=== PATIENT | male | born 1990 | race Caucasian/White ===

== ENCOUNTER 2018-06-27 11:21 | Outpatient (CLI) | payer OTHER ==
[~2018-06-27] VITALS: Ht 180.3 cm; Wt 90.7 kg
[2018-06-27] MEDS ORDERED: NF-ACI30T PO (12:48)
[2018-06-27] MEDS ORDERED: MELA1TAB16 PO (12:48)
[2018-06-27] MEDS ORDERED: VALA10004 PO (12:48)
[2018-06-28] MEDS ORDERED: MELA1TAB27 PO (12:27)
[2018-06-28] MEDS ORDERED: LORA10TA7 PO (12:27)
[2018-06-28] MEDS ORDERED: SUCR1TAB36 PO (12:30)
== END 2018-06-27 12:49 | disposition home or self-care (01) ==
LOC: PREOP 11:21
PROVIDERS: ATTEND Surgery
DX: Z01.818 Encounter for other preprocedural examination (principal)

== ENCOUNTER 2018-06-28 11:14 | Day surgery (SDC) | payer OTHER ==
[~2018-06-28] VITALS: Ht 180.3 cm; Wt 90.7 kg
[~2018-06-28 11:14] MED LIST: MELA1TAB16 PO; NF-ACI30T PO; VALA10004 PO
--- OUTSIDE RECORDS SUMMARY | 2018-06-28 11:18 | XMS REPORT ---
Author Author LUISITO DALLAS Organization [facility] Address [address] [place] [address] Care Team Providers Care Tetryl Blender Operator Name Role Phone LUISITO DALLAS Unavailable PROBLEMS Type Condition ICD9-CM Code MAP46-PC Code Onset Dates Condition Status SNOMED Code Problem Lesion of penis N48.9 Active 962143206 Problem Genital herpes simplex, unspecified site A60.00 Active 33740295 Problem Depressive disorder, not elsewhere classified 311 Active 93659986 Problem Esophageal reflux 530.81 Active 887086814 Problem Dysthymia F34.1 Active 07908027 Problem Seasonal allergic rhinitis, unspecified allergic rhinitis trigger J30.2 Active 322767749 ALLERGIES No Information ENCOUNTERS Encounter Location Date Diagnosis [place] [address] [address] Jun, Genital herpes simplex, unspecified site A60.00 [place] [address] [address] Jun, [place] [address] [address] May, History of positive test for herpes simplex virus type 1 by PCR Z86.19 [place] [address] [address] Apr, History of positive test for herpes simplex virus type 1 by PCR Z86.19 [place] [address] [address] Apr, 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 [place] [address] [address] [place] [id number] [place] [address] 3394 Apr, Lesion of penis N48.9 [facility] [address] [place] [id number] [place] [address]64 16 Apr, 2017 Lesion of penis N48.9 [facility] [address] [place] [address] 16 Apr, 2017 [facility] WALK IN [address] [address] Apr, Screening for STDs (sexually transmitted diseases) Z11.3 and Genital herpes simplex, unspecified site A60.[address] [address] Jan, Dysthymia F34.1 [facility] WALK IN [address] [address] August, Seasonal allergic rhinitis, unspecified allergic rhinitis trigger J30.2 [facility] WALK IN [address] [address] Mar, Body aches R52 and Acute upper respiratory infection, unspecified J06.9 [place] [address] [address] 26 Dec, 2015 Encounter to establish care Z76.89 and Gastroesophageal reflux disease without esophagitis K21.9 [place] [address] [address] [place] [id number] [place] [address] 50[address] 14 Jul, [address] [address] Jul, [place] [address] [address]60 May, [address] [address] May, IMMUNIZATIONS No Known Immunizations SOCIAL HISTORY Never Assessed REASON FOR VISIT medication question PLAN OF CARE VITAL SIGNS MEDICATIONS Unknown Medications RESULTS No Results PROCEDURES No Known procedures INSTRUCTIONS MEDICATIONS ADMINISTERED No Known Medications MEDICAL (GENERAL) HISTORY Type Description Date Surgical History Double abdominal hernia surgery Surgical History [place] teeth Surgical History Cyst removal from right wrist
--- OUTSIDE RECORDS SUMMARY | 2018-06-28 11:18 | XMS REPORT ---
Author Author JEWEL ANAYA Organization [facility] Address [address] [place] [address] Care Team Providers Care Tool And Production Planner Name Role Phone JEWEL ANAYA Unavailable PROBLEMS Type Condition ICD9-CM Code FIH33-DQ Code Onset Dates Condition Status SNOMED Code Problem Esophageal reflux 530.81 Active 591618074 Problem GERD (gastroesophageal reflux disease) K21.9 Active 359288888 Problem Lesion of penis N48.9 Active 571813760 Problem Seasonal allergic rhinitis, unspecified allergic rhinitis trigger J30.2 Active 494857565 Problem Depressive disorder, not elsewhere classified 311 Active 78657338 Problem Genital herpes simplex, unspecified site A60.00 Active 27636878 Problem Dysthymia F34.1 Active 58878237 ALLERGIES No Known Allergies ENCOUNTERS Encounter Location Date Diagnosis [facility] [address] [address] Feb, [facility] [address] [address] Feb, Acute gastroenteritis K52.9 and GERD (gastroesophageal reflux disease) K21.9 [facility] [address] [place] [id number] [place] [address] Dec, Dysthymia F34.1 [facility] [address] [address] 28 Jun, 2017 Genital herpes simplex, unspecified site A60.00 [facility] [address] [address]- [address] 15 Jun, 2017 [facility] [address] [address] 19 May, 2017 History of positive test for herpes simplex virus type 1 by PCR Z86.19 [place] [address] [address] [place] [id number] [place] [address]38- 9784 Apr, History of positive test for herpes simplex virus type 1 by PCR Z86.19 [place] [address] [address] [place] [id number] [place] [address] 23151- 6872 Apr, 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 [place] [address] [address] 8[address] Apr, Lesion of penis N48.9 [facility] [address] [place] [address] Apr, Lesion of penis N48.9 [facility] [address] [place] [address] Apr, [facility] W[facility] [address] [address] Apr, Screening for STDs (sexually transmitted diseases) Z11.3 and Genital herpes simplex, unspecified site A60.00 [place] [id number] [place] [address]- 9960 Jan, Dysthymia F34.1 [facility] [address] [place] [id number] [place] [address] August, Seasonal allergic rhinitis, unspecified allergic rhinitis trigger J30.2 [facility] [address] [address] Mar, Body aches R52 and Acute upper respiratory infection, unspecified J06.9 [place] [address] [place] [id number] [place] [address]98- 18[address] 26 Dec, 2015 Encounter to establish care Z76.89 and Gastroesophageal reflux disease without esophagitis K21.9 [place] [address] [place] [id number] [place] [address] 76658- 9467 14 Jul, 2014 [place] [address] [address] Jul, [facility] [address] [facility] [id number] [place] [address] May, [facility] [address] [facility] [id number] [place] [address] May, IMMUNIZATIONS No Known Immunizations SOCIAL HISTORY Never Assessed REASON FOR VISIT Stomach ache, would like work note - ANCA Stoddard PLAN OF CARE Activity Details Follow Up w/ PCP Reason:GERD VITAL SIGNS Height 71 in 2018-03-02 Weight 200.8 lbs 2018-03-02 Temperature 97.1 degrees Fahrenheit 2018-03-02 Heart Rate 80 bpm 2018-03-02 Respiratory Rate 16 2018-03-02 BMI 28.00 kg/m2 2018-03-02 Blood pressure systolic 100 mmHg 2018-03-02 Blood pressure diastolic 70 mmHg 2018-03-02 MEDICATIONS Medication Instructions Dosage Frequency Start Date End Date Duration Status Valacyclovir HCl 1 GM Orally Once a day 1 tablet 24h 90 days Active Omeprazole 20 MG Orally Once a day 2 capsules 24h Active RESULTS No Results PROCEDURES No Known procedures INSTRUCTIONS MEDICATIONS ADMINISTERED No Known Medications MEDICAL (GENERAL) HISTORY Type Description Date Surgical History Double abdominal hernia surgery Surgical History [place] teeth Surgical History Cyst removal from right wrist
--- OUTSIDE RECORDS SUMMARY | 2018-06-28 11:18 | XMS REPORT ---
Author Author RENATO SALCIDO [facility] WALK IN [facility] Address [address] [place] [address] Care Team Providers Care Bottom Filler Name Role Phone SALCIDOAIMEERENATO Unavailable PROBLEMS Type Condition ICD9-CM Code ZRB69-JD Code Onset Dates Condition Status SNOMED Code Problem Lesion of penis N48.9 Active 071921122 Problem Genital herpes simplex, unspecified site A60.00 Active 48985391 Problem Depressive disorder, not elsewhere classified 311 Active 85340503 Problem Esophageal reflux 530.81 Active 385298874 Problem Dysthymia F34.1 Active 44550113 Problem Seasonal allergic rhinitis, unspecified allergic rhinitis trigger J30.2 Active 505250596 ALLERGIES No Information ENCOUNTERS Encounter Location Date Diagnosis [place] [address] [address] Jun, Genital herpes simplex, unspecified site A60.00 [place] [address] [address] Jun, [place] [address] [address] May, History of positive test for herpes simplex virus type 1 by PCR Z86.19 [place] [address] [address] Apr, History of positive test for herpes simplex virus type 1 by PCR Z86.19 [place] [address] [address] Apr, 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 [place] [address] [address] Apr, Lesion of penis N48.9 [facility] [address] [place] [address] [address] 16 Apr, 2017 Lesion of penis N48.9 [facility] [address] [address] Apr, [facility] [place] [address] [address] Apr, Screening for STDs (sexually transmitted diseases) Z11.3 and Genital herpes simplex, unspecified site A60.00 [place] [address] [address] Jan, Dysthymia F34.1 [facility] WALK IN [address] [address] August, Seasonal allergic rhinitis, unspecified allergic rhinitis trigger J30.2 [facility] WALK IN [address] [address] Mar, Body aches R52 and Acute upper respiratory infection, unspecified J06.9 [place] [address] [address] 26 Dec, 2015 Encounter to establish care Z76.89 and Gastroesophageal reflux disease without esophagitis K21.9 [place] [address] [address] 14 Jul, 2014 [place] [address] [address] Jul, [place] [address] [address]5 May, [place] [address] [address] May, IMMUNIZATIONS No Known Immunizations SOCIAL HISTORY Never Assessed REASON FOR VISIT Lab results PLAN OF CARE VITAL SIGNS MEDICATIONS Unknown Medications RESULTS No Results PROCEDURES No Known procedures INSTRUCTIONS MEDICATIONS ADMINISTERED No Known Medications MEDICAL (GENERAL) HISTORY Type Description Date Surgical History Double abdominal hernia surgery Surgical History [place] teeth Surgical History Cyst removal from right wrist
--- OUTSIDE RECORDS SUMMARY | 2018-06-28 11:18 | XMS REPORT ---
Author Author LUISITO DALLAS Organization [facility] Address [address] [place] [address] Care Team Providers Care Portable Irrigation Operator Name Role Phone LUISITO DALLAS Unavailable PROBLEMS Type Condition ICD9-CM Code VPC86-BJ Code Onset Dates Condition Status SNOMED Code Problem Lesion of penis N48.9 Active 369322736 Problem Genital herpes simplex, unspecified site A60.00 Active 29159548 Problem Depressive disorder, not elsewhere classified 311 Active 19091948 Problem Esophageal reflux 530.81 Active 113061822 Problem Dysthymia F34.1 Active 29919786 Problem Seasonal allergic rhinitis, unspecified allergic rhinitis trigger J30.2 Active 272413628 ALLERGIES No Known Allergies ENCOUNTERS Encounter Location Date Diagnosis [place] [address] [address] Jun, Genital herpes simplex, unspecified site A60.00 [place] [address] [address] Jun, [place] [address] [address] May, History of positive test for herpes simplex virus type 1 by PCR Z86.19 [place] [address] [address] Apr, History of positive test for herpes simplex virus type 1 by PCR Z86.19 [place] [address] [address] Apr, 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 [place] [address] [address] [place] [id number] [place] [address]- 44[address] Apr, Lesion of penis N48.9 [facility] [address] [place] [id number] [place] [address] 16 Apr, 2017 Lesion of penis N48.9 [facility] IN [facility] [address] [address] 16 Apr, 2017 [facility] [address] [address] Apr, Screening for STDs (sexually transmitted diseases) Z11.3 and Genital herpes simplex, unspecified site A60.00 [place] [address] [address] Jan, Dysthymia F34.1 [facility] IN [facility]ARE [address] [place] [address] August, Seasonal allergic rhinitis, unspecified allergic rhinitis trigger J30.2 [facility] [address] [place] [address] Mar, Body aches R52 and Acute upper respiratory infection, unspecified J06.9 [place] [address] [address] 26 Dec, 2015 Encounter to establish care Z76.89 and Gastroesophageal reflux disease without esophagitis K21.9 [place] [address] [address] [place] [id number] [place] [address]- 3787 14 Jul, 2014 [place] [address] [address] Jul, [place] [address] [address] May, [place] [address] [address]689 May, IMMUNIZATIONS No Known Immunizations SOCIAL HISTORY Never Assessed REASON FOR VISIT Discuss HSV2 Suppression Therapy options- Antionette Leslie RN PLAN OF CARE Activity Details Follow Up 6 Months Reason:Herpes VITAL SIGNS Height 71 in 2017-06-30 Weight 178 lbs 2017-06-30 Temperature 98.6 degrees Fahrenheit 2017-06-30 Heart Rate 78 bpm 2017-06-30 Respiratory Rate 18 2017-06-30 BMI 24.82 kg/m2 2017-06-30 Blood pressure systolic 124 mmHg 2017-06-30 Blood pressure diastolic 74 mmHg 2017-06-30 MEDICATIONS Medication Instructions Dosage Frequency Start Date End Date Duration Status Sertraline HCl 50 mg Orally Once a day 1/2 tablet daily for 4 days then 1 tab 24h Jan, 90 days Active Valacyclovir HCl 1 GM Orally Once a day 1 tablet 24h Jun, Oct, 30 days Active Acyclovir 400 mg orally 2 times a day one tab 12h Apr, Nov, 90 days Active Omeprazole 20 MG Orally Once a day 2 capsules 24h Active RESULTS No Results PROCEDURES No Known procedures INSTRUCTIONS MEDICATIONS ADMINISTERED No Known Medications MEDICAL (GENERAL) HISTORY Type Description Date Surgical History Double abdominal hernia surgery Surgical History [place] teeth Surgical History Cyst removal from right wrist
--- OUTSIDE RECORDS SUMMARY | 2018-06-28 11:18 | XMS REPORT ---
Author Author LUISITO DALLAS Organization [facility] Address [address] [place] [address] Care Team Providers Care Ramp Attendant Name Role Phone LUISITO DALLAS Unavailable PROBLEMS Type Condition ICD9-CM Code LPQ96-KL Code Onset Dates Condition Status SNOMED Code Problem Lesion of penis N48.9 Active 655164129 Problem Genital herpes simplex, unspecified site A60.00 Active 69265067 Problem Depressive disorder, not elsewhere classified 311 Active 97370616 Problem Esophageal reflux 530.81 Active 341359261 Problem Dysthymia F34.1 Active 68034541 Problem Seasonal allergic rhinitis, unspecified allergic rhinitis trigger J30.2 Active 291927674 ALLERGIES No Information ENCOUNTERS Encounter Location Date Diagnosis [place] [address] [address] [place] [id number] [place] [address] 13 Dec, 2017 Dysthymia F34.1 [place] [address] [place] [id number] [place] [address]16- 5837 Jun, Genital herpes simplex, unspecified site A60.00 [place] [address] [place] [address] [place] [address] 80989- 7326 Jun, [place] [address] [address] [place] [address] [place] [address] 23072- 4580 May, History of positive test for herpes simplex virus type 1 by PCR Z86.19 [place] [address] [address] [place] [address] [place] [address] 82898- 6843 Apr, History of positive test for herpes simplex virus type 1 by PCR Z86.19 [place] [address] [place] [address] [place] [address] 79273- 1193 Apr, 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 [place] [address] [address] [place] [address] [place] [address]27- 6170 Apr, Lesion of penis N48.9 [facility] [address] [place] [id number] [place] [address] Apr, Lesion of penis N48.9 [facility] [address] [address] Apr, [facility] [address] [address] Apr, Screening for STDs (sexually transmitted diseases) Z11.3 and Genital herpes simplex, unspecified site A60.[address] [address]- [address] Jan, Dysthymia F34.1 [facility] [address] [place] [address]662 -4283 August, Seasonal allergic rhinitis, unspecified allergic rhinitis trigger J30.2 [facility] [address] [place] [id number] [place] [address] Mar, Body aches R52 and Acute upper respiratory infection, unspecified J06.9 [place] [address] [address] [place] [address] [place] [address] 39854- 2651 26 Dec, 2015 Encounter to establish care Z76.89 and Gastroesophageal reflux disease without esophagitis K21.9 [place] [address] [address] [place] [address] [place] [address]- [address] Jul, [place] [address] [address]- [address]655 Jul, [place] [address] [address] 8914 May, [place] [address] [address] [place] [address] [place] [address] 37446- 4364 May, IMMUNIZATIONS No Known Immunizations SOCIAL HISTORY Never Assessed REASON FOR VISIT Refill request PLAN OF CARE VITAL SIGNS MEDICATIONS Medication Instructions Dosage Frequency Start Date End Date Duration Status Sertraline HCl 50 MG Orally Once a day 1 tablet 24h Jan, 90 days Active RESULTS No Results PROCEDURES No Known procedures INSTRUCTIONS MEDICATIONS ADMINISTERED No Known Medications MEDICAL (GENERAL) HISTORY Type Description Date Surgical History Double abdominal hernia surgery Surgical History [place] teeth Surgical History Cyst removal from right wrist
--- OUTSIDE RECORDS SUMMARY | 2018-06-28 11:18 | XMS REPORT ---
Author Author LUISITO DALLAS Organization [facility] Address [address] [place] [address] Care Team Providers Care Redipper Name Role Phone LUISITO DALLAS Unavailable PROBLEMS Type Condition ICD9-CM Code QCI91-HB Code Onset Dates Condition Status SNOMED Code Problem Esophageal reflux 530.81 Active 990353816 Problem GERD (gastroesophageal reflux disease) K21.9 Active 576122191 Problem Lesion of penis N48.9 Active 995564457 Problem Seasonal allergic rhinitis, unspecified allergic rhinitis trigger J30.2 Active 720950130 Problem Depressive disorder, not elsewhere classified 311 Active 20623187 Problem Genital herpes simplex, unspecified site A60.00 Active 95277765 Problem Dysthymia F34.1 Active 64107012 ALLERGIES No Information ENCOUNTERS Encounter Location Date Diagnosis [facility] IN [facility] [address] [place] [id number] [place] [address] Feb, GERD (gastroesophageal reflux disease) K21.[address] [facility] WALK IN [facility] [address] [place] [id number] [place] [address]228 28 Feb, 2018 Acute gastroenteritis K52.9 and GERD (gastroesophageal reflux disease) K21.9 [facility] [address] [place] [id number] [place] [address] 46191- 2990 13 Dec, 2017 Dysthymia F34.1 [facility] [address] [place] [id number] [place] [address] 04981- 5998 28 Jun, 2017 Genital herpes simplex, unspecified site A60.00 [facility] [address] [place] [id number] [place] [address] 90096- 1395 15 Jun, 2017 [facility] [address] [place] [id number] [place] [address] 98229- 0866 May, History of positive test for herpes simplex virus type 1 by PCR Z86.19 [place] [address] [address] [place] [id number] [place] [address] 42276- 1449 Apr, History of positive test for herpes simplex virus type 1 by PCR Z86.19 [place] [address] [address] [place] [id number] [place] [address] 44796- 1204 Apr, 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 [place] [address] [address] 1600 Apr, Lesion of penis N48.9 [facility] [address] [place] [id number] [place] [address]487 -4653 Apr, Lesion of penis N48.9 [facility] [address] [place] [id number] [place] [address]193 Apr, [facility] [address] [place] [address]7 Apr, Screening for STDs (sexually transmitted diseases) Z11.3 and Genital herpes simplex, unspecified site A60.[address] [address]- [address]63 Jan, Dysthymia F34.1 [facility] [address] [place] [id number] [place] [address] 7[address]78 -0065 August, Seasonal allergic rhinitis, unspecified allergic rhinitis trigger J30.2 [facility] [address] [place] [id number] [place] [address] 45271 -3738 Mar, Body aches R52 and Acute upper respiratory infection, unspecified J06.9 [place] [address] [place] [id number] [place] [address] 94104- 4801 26 Dec, 2015 Encounter to establish care Z76.89 and Gastroesophageal reflux disease without esophagitis K21.9 [place] [address] [place] [id number] [place] [address] 59179- 4006 14 Jul, 2014 [place] [address] [place] [address] 50[address] Jul, [facility] [address] [facility] [id number] [address] May, [facility] [address] [facility] [id number] [address] May, IMMUNIZATIONS No Known Immunizations SOCIAL HISTORY Never Assessed REASON FOR VISIT Medication Question PLAN OF CARE VITAL SIGNS MEDICATIONS Medication Instructions Dosage Frequency Start Date End Date Duration Status Protonix 40 MG Orally Once a day 1 tablet 24h Mar, 30 day(s) Active RESULTS No Results PROCEDURES No Known procedures INSTRUCTIONS MEDICATIONS ADMINISTERED No Known Medications MEDICAL (GENERAL) HISTORY Type Description Date Surgical History Double abdominal hernia surgery Surgical History [place] teeth Surgical History Cyst removal from right wrist
--- OUTSIDE RECORDS SUMMARY | 2018-06-28 11:19 | XMS REPORT ---
Author Author RENATO SALCIDO [facility] WALK IN [facility] Address [address] [place] [address] Care Team Providers Care Holistic Nutritionist Name Role Phone SALCIDOAIMEERENATO Unavailable PROBLEMS Type Condition ICD9-CM Code AWM04-DV Code Onset Dates Condition Status SNOMED Code Problem Lesion of penis N48.9 Active 629309485 Problem Genital herpes simplex, unspecified site A60.00 Active 71059951 Problem Depressive disorder, not elsewhere classified 311 Active 49521504 Problem Esophageal reflux 530.81 Active 407739241 Problem Dysthymia F34.1 Active 08395406 Problem Seasonal allergic rhinitis, unspecified allergic rhinitis trigger J30.2 Active 951074891 ALLERGIES No Information ENCOUNTERS Encounter Location Date Diagnosis [place] [address] [address] Jun, Genital herpes simplex, unspecified site A60.00 [place] [address] [address] Jun, [place] [address] [address] May, History of positive test for herpes simplex virus type 1 by PCR Z86.19 [place] [address] [address] Apr, History of positive test for herpes simplex virus type 1 by PCR Z86.19 [place] [address] [address] Apr, 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 [place] [address] [address] Apr, Lesion of penis N48.9 [facility] IN CARE [address] [place] [address] [place] [address] 16 Apr, 2017 Lesion of penis N48.9 [facility] [address] [address] Apr, [facility] [place] [address] [address] Apr, Screening for STDs (sexually transmitted diseases) Z11.3 and Genital herpes simplex, unspecified site A60.00 [place] [address] [address] Jan, Dysthymia F34.1 [facility] WALK IN [address] [address] August, Seasonal allergic rhinitis, unspecified allergic rhinitis trigger J30.2 [facility] WALK IN [address] [address] Mar, Body aches R52 and Acute upper respiratory infection, unspecified J06.9 [place] [address] [address] 26 Dec, 2015 Encounter to establish care Z76.89 and Gastroesophageal reflux disease without esophagitis K21.9 [place] [address] [address] [place] [id number] [place] [address] 14 Jul, 2014 [place] [address] [address] Jul, [place] [address] [address] May, [place] [address] [address] May, IMMUNIZATIONS No Known Immunizations SOCIAL HISTORY Never Assessed REASON FOR VISIT PLAN OF CARE VITAL SIGNS MEDICATIONS Unknown Medications RESULTS No Results PROCEDURES No Known procedures INSTRUCTIONS MEDICATIONS ADMINISTERED No Known Medications MEDICAL (GENERAL) HISTORY Type Description Date Surgical History Double abdominal hernia surgery Surgical History [place] teeth Surgical History Cyst removal from right wrist
--- OUTSIDE RECORDS SUMMARY | 2018-06-28 11:19 | XMS REPORT ---
Author Author LUISITO DALLAS [facility] eClinicalWorks Address Unknown Phone Unavailable Care Team Providers Care Gaming Department Head Name Role Phone LUISITO DALLAS CP Unavailable Allergies, Adverse Reactions, Alerts Substance Reaction Event Type N.K.D.A. Info Not Available Non Drug Allergy Problems Problem Type Condition Code Onset Dates Condition Status Problem Depressive disorder, not elsewhere classified 311 Active Assessment Encounter to establish care Z76.89 Active Problem Esophageal reflux 530.81 Active Assessment Gastroesophageal reflux disease without esophagitis K21.9 Active Medications Medication Code System Code Instructions Start Date End Date Status Dosage Aciphex [facility] [address]-42 20 mg Orally Once a day Dec 30, 2015 1 tablet Procedures Procedure Coding System Code Date Office Visit, New Pt., Level 3 CPT-4 06514 Dec 30, 2015 Vital Signs Date/Time: Dec 30, 2015 Cardiac Monitoring Heart Rate 80 bpm Weight 188 lbs Height 71 in BMI 26.22 Index Blood Pressure Diastolic 78 mmHg Blood Pressure Systolic 120 mmHg Results No Known Results Summary Purpose eClinicalWorks Submission
--- OUTSIDE RECORDS SUMMARY | 2018-06-28 11:19 | XMS REPORT ---
Author Author KIM VO [facility] Address [address] [place] [address] Care Team Providers Care Shore Hand Dredge Or Barge Name Role Phone KIM VO Unavailable PROBLEMS Type Condition ICD9-CM Code AGH99-VJ Code Onset Dates Condition Status SNOMED Code Problem Seasonal allergic rhinitis, unspecified allergic rhinitis trigger J30.2 Active 003421962 Problem Esophageal reflux 530.81 Active 246380039 Problem Depressive disorder, not elsewhere classified 311 Active 73237165 ALLERGIES Substance Reaction Event Type Date Status N.K.D.A. Unknown Non Drug Allergy Mar, Unknown SOCIAL HISTORY No smoking Hx information available PLAN OF CARE VITAL SIGNS Height 71 in 2016-04-01 Weight 188 lbs 2016-04-01 Temperature 98.1 degrees Fahrenheit 2016-04-01 Heart Rate 86 bpm 2016-04-01 Respiratory Rate 18 2016-04-01 BMI 26.22 kg/m2 2016-04-01 Blood pressure systolic 118 mmHg 2016-04-01 Blood pressure diastolic 74 mmHg 2016-04-01 MEDICATIONS Medication Instructions Dosage Frequency Start Date End Date Duration Status Aciphex 20 mg Orally Once a day 1 tablet 24h 26 Dec, 2015 Active RESULTS Name Result Date Reference Range INFLUENZA A & B (IN HOUSE) 2016-04-01 INFLUENZA A Negative INFLUENZA B Negative Control + Lot # [id number] Exp date 04/15/17 PROCEDURES Procedure Date Ordered Related Diagnosis Body Site Office Visit, Est Pt., Level 3 Apr 01, 2016 IMMUNIZATIONS No Known Immunizations
--- OUTSIDE RECORDS SUMMARY | 2018-06-28 11:19 | XMS REPORT ---
Author Author LUISITO DALLAS Organization [facility] Address [address] [place] [address] Care Team Providers Care Stencil Inspector Name Role Phone LUISITO DALLAS Unavailable PROBLEMS Type Condition ICD9-CM Code BTC25-XE Code Onset Dates Condition Status SNOMED Code Problem Lesion of penis N48.9 Active 177020829 Problem Genital herpes simplex, unspecified site A60.00 Active 34481799 Problem Depressive disorder, not elsewhere classified 311 Active 08580767 Problem Esophageal reflux 530.81 Active 585967800 Problem Dysthymia F34.1 Active 32684626 Problem Seasonal allergic rhinitis, unspecified allergic rhinitis trigger J30.2 Active 470851733 ALLERGIES No Known Allergies ENCOUNTERS Encounter Location Date Diagnosis [place] [address] [address] Jun, Genital herpes simplex, unspecified site A60.00 [place] [address] [address] Jun, [place] [address] [address] May, History of positive test for herpes simplex virus type 1 by PCR Z86.19 [place] [address] [address] Apr, History of positive test for herpes simplex virus type 1 by PCR Z86.19 [place] [address] [address] Apr, 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 [place] [address] [address] [place] [id number] [place] [address] Apr, Lesion of penis N48.9 [facility] IN CARE [address] [place] [id number] [place] [address] 16 Apr, 2017 Lesion of penis N48.9 [facility] IN [facility] [address] [place] [address] 16 Apr, 2017 [facility] [address] [address] Apr, Screening for STDs (sexually transmitted diseases) Z11.3 and Genital herpes simplex, unspecified site A60.00 [place] [address] [address] Jan, Dysthymia F34.1 [facility] [address] [place] [address] August, Seasonal allergic rhinitis, unspecified allergic rhinitis trigger J30.2 [facility] WALK IN [address] [address] Mar, Body aches R52 and Acute upper respiratory infection, unspecified J06.9 [place] [address] [address] 26 Dec, 2015 Encounter to establish care Z76.89 and Gastroesophageal reflux disease without esophagitis K21.9 [place] [id number] [place] [address] 14 Jul, [address] [address] Jul, [place] [address] [address] May, [address] [address] May, IMMUNIZATIONS No Known Immunizations SOCIAL HISTORY Never Assessed REASON FOR VISIT HSV - [place] Juan PLAN OF CARE Activity Details Follow Up 4 Weeks Reason:acyclovir VITAL SIGNS Height 71 in 2017-05-03 Weight 181.5 lbs 2017-05-03 Temperature 98.3 degrees Fahrenheit 2017-05-03 Heart Rate 88 bpm 2017-05-03 Respiratory Rate 20 2017-05-03 BMI 25.31 kg/m2 2017-05-03 Blood pressure systolic 122 mmHg 2017-05-03 Blood pressure diastolic 82 mmHg 2017-05-03 MEDICATIONS Medication Instructions Dosage Frequency Start Date End Date Duration Status Omeprazole 10 MG Orally Once a day 2 capsules 24h Active Sertraline HCl 50 mg Orally Once a day 1/2 tablet daily for 4 days then 1 tab 24h Jan, 90 days Not-Taking Acyclovir 400 mg orally 4 times a day one tab 6h Apr, May, 14 days Active RESULTS No Results PROCEDURES Procedure Date Ordered Result Body Site VIRUS INOCULATION, TISSUE May 03, 2017 INSTRUCTIONS MEDICATIONS ADMINISTERED No Known Medications MEDICAL (GENERAL) HISTORY Type Description Date Surgical History Double abdominal hernia surgery Surgical History [place] teeth Surgical History Cyst removal from right wrist
--- OUTSIDE RECORDS SUMMARY | 2018-06-28 11:19 | XMS REPORT ---
Author Author RENATO SALCIDO [facility] WALK IN [facility] Address [address] [place] [address] Care Team Providers Care Entry Level Electrician Name Role Phone SALCIDOAIMEERENATO Unavailable PROBLEMS Type Condition ICD9-CM Code IYZ54-ZZ Code Onset Dates Condition Status SNOMED Code Problem Lesion of penis N48.9 Active 799462576 Problem Genital herpes simplex, unspecified site A60.00 Active 59593487 Problem Depressive disorder, not elsewhere classified 311 Active 52818799 Problem Esophageal reflux 530.81 Active 657120014 Problem Dysthymia F34.1 Active 95778163 Problem Seasonal allergic rhinitis, unspecified allergic rhinitis trigger J30.2 Active 301055660 ALLERGIES No Information ENCOUNTERS Encounter Location Date Diagnosis [place] [address] [address] Jun, Genital herpes simplex, unspecified site A60.00 [place] [address] [address] Jun, [place] [address] [address] May, History of positive test for herpes simplex virus type 1 by PCR Z86.19 [place] [address] [address] Apr, History of positive test for herpes simplex virus type 1 by PCR Z86.19 [place] [address] [address] Apr, 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 [place] [address] [address] Apr, Lesion of penis N48.9 [facility] W[facility] IN [facility]ARE [address] [place] [address] [place] [address] 16 Apr, 2017 Lesion of penis N48.9 [facility] IN [facility] N [address] [address] 16 Apr, 2017 [facility] WALK IN [place] [address] [address] 08 Apr, 2017 Screening for STDs (sexually transmitted diseases) Z11.3 and Genital herpes simplex, unspecified site A60.00 [place] [address] [address] 11 Jan, 2017 Dysthymia F34.1 [facility] WALK IN [address] [address] 16 Aug, 2016 Seasonal allergic rhinitis, unspecified allergic rhinitis trigger J30.2 [facility] WALK IN [address] [address] Mar, Body aches R52 and Acute upper respiratory infection, unspecified J06.9 [place] [address] [address] 26 Dec, 2015 Encounter to establish care Z76.89 and Gastroesophageal reflux disease without esophagitis K21.9 [place] [address] [address] [place] [id number] [place] [address] 14 Jul, 2014 [place] [address] [address] Jul, [place] [address] [address] [place] [id number] [place] [address] May, [place] [address] [address] May, IMMUNIZATIONS No Known Immunizations SOCIAL HISTORY Never Assessed REASON FOR VISIT Lab (walk-in) PLAN OF CARE VITAL SIGNS MEDICATIONS Unknown Medications RESULTS No Results PROCEDURES Procedure Date Ordered Result Body Site HERPES SIMPLEX TYPE 2 Apr 23, 2017 HERPES SIMPLEX TEST Apr 23, 2017 VENIPUNCT, ROUTINE* Apr 23, 2017 INSTRUCTIONS MEDICATIONS ADMINISTERED No Known Medications MEDICAL (GENERAL) HISTORY Type Description Date Surgical History Double abdominal hernia surgery Surgical History [place] teeth Surgical History Cyst removal from right wrist
--- OUTSIDE RECORDS SUMMARY | 2018-06-28 11:19 | XMS REPORT ---
Author Author LUISITO DALLAS Organization [facility] Address [address] [place] [address] Care Team Providers Care Powder Nipper Name Role Phone LUISITO DALLAS Unavailable PROBLEMS Type Condition ICD9-CM Code GTN49-AL Code Onset Dates Condition Status SNOMED Code Problem Lesion of penis N48.9 Active 189489534 Problem Genital herpes simplex, unspecified site A60.00 Active 76976656 Problem Depressive disorder, not elsewhere classified 311 Active 35685679 Problem Esophageal reflux 530.81 Active 910194067 Problem Dysthymia F34.1 Active 65473335 Problem Seasonal allergic rhinitis, unspecified allergic rhinitis trigger J30.2 Active 169786038 ALLERGIES No Information ENCOUNTERS Encounter Location Date Diagnosis [place] [address] [address] Jun, Genital herpes simplex, unspecified site A60.00 [place] [address] [address] Jun, [place] [address] [address] May, History of positive test for herpes simplex virus type 1 by PCR Z86.19 [place] [address] [address] Apr, History of positive test for herpes simplex virus type 1 by PCR Z86.19 [place] [address] [address] Apr, 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 [place] [address] [address] [place] [id number] [place] [address] Apr, Lesion of penis N48.9 [facility] IN [facility]ARE [address] [place] [id number] [place] [address] 16 Apr, 2017 Lesion of penis N48.9 [facility] IN [facility]ARE [address] [place] [address] 16 Apr, 2017 [facility] WALK IN [address] [address] Apr, Screening for STDs (sexually transmitted diseases) Z11.3 and Genital herpes simplex, unspecified site A60.[address] [address] Jan, Dysthymia F34.1 [facility] WALK IN [address] [address] August, Seasonal allergic rhinitis, unspecified allergic rhinitis trigger J30.2 [facility] WALK IN [address] [address] Mar, Body aches R52 and Acute upper respiratory infection, unspecified J06.9 [place] [address] [address] 26 Dec, 2015 Encounter to establish care Z76.89 and Gastroesophageal reflux disease without esophagitis K21.9 [place] [id number] [place] [address] 14 Jul, [address] [address] Jul, [place] [address] [address] [place] [id number] [place] [address] May, [address] [address] May, IMMUNIZATIONS No Known Immunizations SOCIAL HISTORY Never Assessed REASON FOR VISIT Medication refill request PLAN OF CARE VITAL SIGNS MEDICATIONS Medication Instructions Dosage Frequency Start Date End Date Duration Status Acyclovir 400 mg orally 2 times a day one tab 12 Apr, Nov, 90 days Active RESULTS No Results PROCEDURES No Known procedures INSTRUCTIONS MEDICATIONS ADMINISTERED No Known Medications MEDICAL (GENERAL) HISTORY Type Description Date Surgical History Double abdominal hernia surgery Surgical History [place] teeth Surgical History Cyst removal from right wrist
--- OUTSIDE RECORDS SUMMARY | 2018-06-28 11:20 | XMS REPORT | Continuity of Care Document ---
Author Author [facility] Address Unknown Phone Unavailable Allergies There is no data. Medications There is no data. Problems Date Dx Coded Attending Type Code Diagnosis Diagnosed By 05/18/2014 ALICIA BENTON APRN 311 DEPRESSIVE DISORDER NOT ELSEWHERE CLASSIFIED 05/18/2014 ALICIA BENTON APRN 530.81 GERD Procedures There is no data. Results Test Result Range CULTURE, VIRAL (HSV W/TYPING) - 04/12/17 00:00 SOURCE: PENIS NRG HSV CULTURE: TNP NRG TEST IN QUESTION- [facility] QUESTION - 04/20/17 05:22 RESOLUTION: NRG COMMENT NRG QUESTION/PROBLEM: NRG QUESTION: 04/12/2017 8:12 NRG HSV 1/2 IGG,TYPE SPECIFIC AB HERPESELECT - 04/23/17 14:45 HSV 1 IGG, TYPE SPECIFIC AB 24.60 index NRG HSV 2 IGG, TYPE SPECIFIC AB 1.02 index NRG HSV TYPE 2 - 05/03/17 14:34 HSV TYPE 2: ISOLATED NRG Encounters ACCT No. Visit Date/Time Discharge Status Pt. Type Provider Facility Loc./Unit Complaint [id number] 05/18/2014 08:08:00 05/18/2014 23:59:59 CLS Outpatient ALICIA BENTON APRN [id number] 06/15/2018 15:20:00 06/15/2018 23:59:59 CLS Outpatient LUISITO DALLAS APRN [facility] [id number] 05/03/2017 14:34:00 Document Registration [id number] 05/03/2017 14:00:00 Document Registration [id number] 04/23/2017 14:40:00 Document Registration [id number] 04/12/2017 13:10:00 Document Registration
[2018-06-28] MEDS ORDERED: LACTATED RINGERS 1,000 ML IV STA (11:33)
[2018-06-28 11:40] VITALS: BP 136/93
[2018-06-28] MEDS ORDERED: HURRICAINE EXT TUBE (BENZOCAINE) XX PRN (11:45)
[2018-06-28] MEDS ORDERED: HURRICAINE EXT TUBE (BENZOCAINE) ONE (11:46)
[2018-06-28] MEDS ORDERED: PROPOFOL INJECTION 50 ML IV ONE (12:13)
[2018-06-28] MEDS ORDERED: MIDAZOLAM 2 MG/2 ML (VERSED) VIAL ONE (12:13)
[2018-06-28] MEDS ORDERED: LORA10TA7 PO (12:27)
[2018-06-28] MEDS ORDERED: MELA1TAB27 PO (12:27)
--- NOTE | 2018-06-28 12:27 | Progress Note-Post Operative ---
Post-Operative Progess Note Surgeon (s)/Clinical Esthetician (s) Surgeon CARRIE AGUDELO DO Clinical Esthetician: NA Pre-Operative Diagnosis GERD Post-Operative Diagnosis gastritis, hiatal hernia, esophagitis Procedure & Operative Findings Date of Procedure 06/28/18 Procedure Performed/Findings EGD w/ biopsies Anesthesia Type per HYDROLOGICAL TECHNICAL OFFICER Estimated Blood Loss Estimated blood loss (mL): None Specimens/Packing Specimens Removed Antrum, GE CARRIE AGUDELO DO Jun 28, 2018 12:27
[2018-06-28] MEDS ORDERED: SUCR1TAB36 PO (12:30)
--- NOTE | 2018-06-28 12:32 | Discharge Inst-Simple/Standard ---
Discharge Inst-Standard Discharge Medications New, Converted or Re-Newed RX: Transmitted to Pharmacy Patient Instructions/Follow Up Plan of Care/Instructions/FU: 2 weeks rbennen Activity as Tolerated: Yes Discharge Diet: Regular Diet CARRIE AGUDELO DO Jun 28, 2018 12:32
[2018-06-28 12:45] VITALS: BP 106/65
[2018-06-28 13:15] VITALS: BP 113/74
[2018-06-28 13:18] VITALS: BP 113/74
--- NOTE | 2018-06-28 15:42 | OPERATIVE REPORT ---
DATE OF SERVICE: 06/28/2018 PREOPERATIVE DIAGNOSIS: Gastroesophageal reflux disease. POSTOPERATIVE DIAGNOSES: Gastritis, hiatal hernia, and esophagitis. PROCEDURE PERFORMED: Esophagogastroduodenoscopy with biopsy. SURGEON: Carrie Null DO. ANESTHESIA: Per SITE LEASING AGENT. ESTIMATED BLOOD LOSS: None. COMPLICATIONS: None. INDICATIONS: The patient is a 28-year-old male with continued gastroesophageal reflux disease despite medical management. The patient was explained risks and benefits of procedure and wished to proceed with procedure. Consent was signed in the chart. DESCRIPTION OF PROCEDURE: The patient was taken to the endoscopy suite, placed in left lateral recumbent position. Timeout was performed. Scope was inserted in mouth, down the esophagus, stomach and into the duodenum without difficulty. There were no polyps, masses or ulcerations. The scope was then slowly retracted back into the stomach where it was further insufflated. Erythematous changes consistent with gastritis were present. Biopsy of the antrum was obtained. No polyps, masses or ulcerations. Scope was retroflexed noting a small hiatal hernia, no other pathology. Scope was returned to its normal position, slowly withdrawn to the distal esophagus, which had erythematous changes. Biopsy was obtained. Scope was then slowly retracted back noting no other pathology. The patient tolerated procedure well without any complications, taken to recovery room in stable condition. RECOMMENDATIONS: The patient will be started on Carafate 1 gram four times a day. We will follow up on biopsies in approximately 2 weeks. We will see how he is doing at that time. Job ID: [id number] DocumentID: [id number] Dictated Date: 06/28/2018 12:31:41 Insurance Sales Agent Date: 06/28/2018 15:40:52 Dictated By: CARRIE NULL DO
== END 2018-06-28 13:20 | disposition home or self-care (01) ==
LOC: ENDO 11:14
PROVIDERS: ATTEND Surgery
DX: K20.0 Eosinophilic esophagitis (principal); K21.9 Gastro-esophageal reflux disease without esophagitis; K44.9 Diaphragmatic hernia without obstruction or gangrene; K29.50 Unspecified chronic gastritis without bleeding; J45.909 Unspecified asthma, uncomplicated; Z79.899 Other long term (current) drug therapy

== ENCOUNTER → 2021-01-26 | Outpatient (CLI) | payer OTHER ==
[~2021-01-26] MED LIST changes: +CATHETER FLUSH 10 ML SYR IV PRN; +HOLD METFORMIN - RECEIVED CONTRAST 20 ML VIAL IV SCH; +IOHEXOL 350 MG/ML 100 ML (OMNIPAQUE 350) VIAL IV ONE; +LORA10TA7 PO; +MELA1TAB27 PO; +NS 100 ML (IVPB) BAG IV ONE; +SUCR1TAB36 PO
[2021-01-26 16:50] LABS: BASOPHILS % (AUTO) 1 % (0-10); EOSINOPHILS # (AUTO) 0.2 10^3/uL (0.0-0.3); EOSINOPHILS % (AUTO) 4 % (0-10); HEMATOCRIT 44 % (40-54); HEMOGLOBIN 15.3 g/dL (13.3-17.7); LYMPHOCYTES # (AUTO) 1.9 10^3/uL (1.0-4.0); LYMPHOCYTES % (AUTO) 32 % (12-44); MEAN CORPUSCULAR HEMOGLOBIN 32 pg (25-34); MEAN CORPUSCULAR HGB CONC 35 g/dL (32-36); MEAN CORPUSCULAR VOLUME 91 fL (80-99); MEAN PLATELET VOLUME 9.3 fL (9.0-12.2); MONOCYTES # (AUTO) 0.6 10^3/uL (0.0-1.0); MONOCYTES % (AUTO) 11 % (0-12); NEUTROPHILS % (AUTO) 53 % (42-75); PLATELET COUNT 284 10^3/uL (130-400); WHITE BLOOD COUNT 5.8 10^3/uL (4.3-11.0)
--- NOTE | 2021-01-26 17:21 | Diagnostic Imaging Report ---
PROCEDURE: CT neck soft tissue with contrast. TECHNIQUE: Multiple contiguous axial images were obtained through the neck after the administration of contrast. Auto Exposure Controls were utilized during the CT exam to meet ALARA standards for radiation dose reduction. INDICATION: Evaluate for neck mass. FINDINGS: There is a low-density lesion demonstrated within the left aspect of the neck which is just posterior to the mandibular condyle and anterior to the sternocleidomastoid muscle belly. This measures 3.5 x 2.5 x 4.7 cm. There is no significant thickening of the capsule about this lesion though there are a few small subtle areas of slight internal nodularity about its margins. The lesion otherwise appears to be predominantly cystic. Primary considerations at this location would be that of a branchial cleft cyst. There is interval increase in size, super infection would be considered. This does not have an imaging appearance suggesting a suppurative or necrotic lymph node. An abscess is felt less likely given lack of adjacent inflammatory change. Less likely consideration would include a cystic neoplasm or lymphatic malformation. CT appearance of the soft tissues of the neck otherwise appear unremarkable. The posterior nasopharynx and oropharynx are appropriately symmetric. There is no displacement of the parapharyngeal fat planes. The base of the tongue is symmetric. The tonsillar pillars are unremarkable. There is no abnormal process within the prevertebral retropharyngeal space. There is no thickening of the epiglottis. The vocal folds appear symmetric. The parotid, submandibular and thyroid gland are unremarkable. There are no pathologically enlarged lymph nodes evident. The visualized intracranial contents demonstrate no findings of mass effect or hydrocephalus. There is no pathologic intracranial enhancement. Mastoids and middle ears are clear. The paranasal sinuses appear clear. Orbital contents are unremarkable. The lung apices are clear. Vascular structures of the neck demonstrate no significant stenosis on this nondedicated exam. There is no acute cervical spine abnormality. IMPRESSION: 1. Large cystic lesion within the left neck posterior to the mandibular angle and anterior to the sternomastoid muscle belly and lateral to the carotid space. 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 Less likely considerations as above. Consider follow-up with ENT. If further imaging is desired, ultrasound could be considered to evaluate for internal vascularity. Alternatively MRI with and without contrast may provide further characterization. 2. Soft tissue of the neck otherwise appear unremarkable. Dictated by: Dictated on workstation # [id number]
[2021-01-26 17:22] LABS: ALBUMIN 4.4 GM/DL (3.2-4.5); BILIRUBIN,TOTAL 0.3 MG/DL (0.1-1.0); CALCIUM 9.6 MG/DL (8.5-10.1); CREATININE SERUM 1.29 MG/DL (0.60-1.30); FREE T4 (FREE THYROXINE) 1.04 NG/DL (0.70-1.48); POTASSIUM 3.9 MMOL/L (3.6-5.0); TOTAL PROTEIN 7.6 GM/DL (6.4-8.2)
== END ==
LOC: RAD 16:03
PROVIDERS: ATTEND Physician Assistant
DX: R22.1 Localized swelling, mass and lump, neck (principal)
CPT/HCPCS: 36415; 70491; 80053; 84439; 84443; 85025

== ENCOUNTER → 2021-02-13 | Day surgery (SDC) | payer OTHER ==
[~2021-02-13] VITALS: Ht 180.3 cm; Wt 88.6 kg
[~2021-02-13] MED LIST changes: -CATHETER FLUSH 10 ML SYR IV PRN; -HOLD METFORMIN - RECEIVED CONTRAST 20 ML VIAL IV SCH; -IOHEXOL 350 MG/ML 100 ML (OMNIPAQUE 350) VIAL IV ONE; +LIDOCAINE 1% INJ 20 ML 20 ML VIAL INJ ONE; +LIDOCAINE 1% INJ 20 ML 20 ML VIAL ONE; -NS 100 ML (IVPB) BAG IV ONE
--- NOTE | 2021-02-13 13:17 | Diagnostic Imaging Report ---
INDICATION: Left neck mass. Patient presents for ultrasound-guided fine-needle aspiration. Patient was brought to the procedure room and placed in the bed in the [id number] decubitus position. Ultrasound imaging of the left neck was performed to evaluate appropriate entry site. The left neck was then prepped and draped in the usual sterile fashion. A small amount of 1% lidocaine was utilized for local anesthesia. An 18-gauge needle was advanced into the large cystic mass in the left neck. A total of 20 mL of purulent fluid was aspirated. Needle was withdrawn, and hemostasis was obtained. Patient tolerated the procedure well and left the department in stable condition. IMPRESSION: Successful left neck mass aspiration utilizing sonographic guidance. Purulent fluid was removed. Features are suggestive of a probable suppurative lymph node. Fluid will be sent for culture and sensitivity as well as cytology evaluation. Dictated by: Dictated on workstation # [id number]
== END ==
LOC: RAD 10:38
PROVIDERS: ATTEND Surgery
DX: R22.1 Localized swelling, mass and lump, neck (principal); J45.909 Unspecified asthma, uncomplicated; Z79.899 Other long term (current) drug therapy
CPT/HCPCS: 87070; 87075; 87101; 87205; 88173; 88305